=== PATIENT | male | born 1960 | race Two or more races ===

== ENCOUNTER 2017-06-22 06:51 | Day surgery (SDC) | payer OTHER ==
[~2017-06-22] VITALS: Ht 180.3 cm; Wt 131.5 kg
[~2017-06-22 06:51] MED LIST: INSLANTI SC; INSLISPI SC; PREG50CA PO; SPIR50TA23 PO; TAM04C PO
[2017-06-22] MEDS ORDERED: IODIXANOL 320MG/ML 100ML BTL IV ONE (07:34)
[2017-06-22] MEDS ORDERED: LIDOCAINE 2%HCL (LOCAL ANESTH.) INJ 20ML MDV ONE (07:34)
[2017-06-22] MEDS ORDERED: ANGIOMAX 250 MG VIAL IV ONE (08:10)
[2017-06-22] MEDS ORDERED: fentaNYL CITRATE 100 MCG/2 ML VL ONE (08:10)
[2017-06-22] MEDS ORDERED: MIDAZOLAM HCL 1MG/1ML-2 ML VIAL ONE (08:11)
[2017-06-22] MEDS ORDERED: VERAPAMIL 2.5MG/ML INJ 2ML VIAL IV ONE (08:11)
[2017-06-22] MEDS ORDERED: HEPARIN 1,000 UNITS/ml 1ML VIAL ONE (08:34)
== END 2017-06-22 11:05 | disposition home or self-care (01) ==
LOC: CATH 06:51
PROVIDERS: ATTEND Internal Medicine
DX: R94.39 Abnormal result of other cardiovascular function study (principal); I50.9 Heart failure, unspecified; G47.30 Sleep apnea, unspecified; E11.9 Type 2 diabetes mellitus without complications; K74.60 Unspecified cirrhosis of liver; I73.9 Peripheral vascular disease, unspecified; F10.99 Alcohol use, unspecified with unspecified alcohol-induced disorder
CPT/HCPCS: 82962; 93458; C1769; C1894; J1644; J2250; J3010; J7030; Q9967; 99152